=== PATIENT | male | born 2000 | race African-American/Black ===

== ENCOUNTER 2024-09-30 10:28 | Emergency (ER) | payer MEDICAID, OTHER ==
[~2024-09-30] VITALS: Ht 180.3 cm; Wt 88.0 kg
[2024-09-30 10:44] VITALS: TEMP 98.6; O2SAT 97
[2024-09-30 12:46] VITALS: BP 136/90; PULSE 100; RESP 16
[2024-09-30] MEDS: IBUPROFEN 600MG TABLET PO ONE (12:46)
[2024-09-30] MEDS ORDERED: IBUP-2029 MT (13:25)
== END 2024-09-30 13:53 | disposition home or self-care (01) ==
LOC: ER 10:45
DX: J10.1 Influenza due to other identified influenza virus with other respiratory manifestations (principal); Z20.822 Contact with and (suspected) exposure to COVID-19
CPT/HCPCS: 87426; 87804; 99283

== ENCOUNTER 2025-09-08 19:51 | Emergency (ER) | payer OTHER, MEDICAID ==
[~2025-09-08] VITALS: Ht 177.8 cm; Wt 91.0 kg
[~2025-09-08 19:51] MED LIST: IBUP-1455 MT
[2025-09-08 20:00] VITALS: O2SAT 100
[2025-09-08] MEDS: ACETAMINOPHEN 500MG TABLET PO ONE (22:27)
[2025-09-09] MEDS ORDERED: NAPR-1176 MT (00:16)
[2025-09-09] MEDS ORDERED: LIDO-53 TP (00:16)
[2025-09-09 00:22] VITALS: BP 158/92; PULSE 72; RESP 18; TEMP 36.8; O2SAT 100
== END 2025-09-09 00:26 | disposition home or self-care (01) ==
LOC: ER 19:51
DX: S00.81XA Abrasion of other part of head, initial encounter (principal); F10.129 Alcohol abuse with intoxication, unspecified; D68.9 Coagulation defect, unspecified; M79.641 Pain in right hand; R56.1 Post traumatic seizures; Z79.1 Long term (current) use of non-steroidal anti-inflammatories (NSAID); Y90.9 Presence of alcohol in blood, level not specified; V47.5XXA Car driver injured in collision with fixed or stationary object in traffic accident, initial encounter; Y93.89 Activity, other specified; Y92.410 Unspecified street and highway as the place of occurrence of the external cause; Y99.9 Unspecified external cause status
CPT/HCPCS: 70486; 73130; 99284